=== PATIENT | male | born 1975 | race Caucasian/White ===

== ENCOUNTER → 2021-05-16 | Outpatient (CLI) | payer OTHER | LOC: HEART CORB 10:45 | DX: R07.2 Precordial pain (principal); R06.02 Shortness of breath; R60.0 Localized edema | CPT/HCPCS: 93306 ==

== ENCOUNTER → 2021-06-25 | Outpatient (CLI) | payer OTHER | LOC: SLEEP-COR 21:30 | DX: E66.9 Obesity, unspecified (principal); F17.200 Nicotine dependence, unspecified, uncomplicated; G47.33 Obstructive sleep apnea (adult) (pediatric); R09.02 Hypoxemia | CPT/HCPCS: 95810 ==

== ENCOUNTER → 2021-07-17 | Outpatient (CLI) | payer OTHER | LOC: HEART 5 10:33 | DX: R09.02 Hypoxemia (principal) | CPT/HCPCS: 94060; 94729 ==

== ENCOUNTER → 2021-07-19 | Outpatient (CLI) | payer OTHER | LOC: RT 09:22 | DX: R09.02 Hypoxemia (principal) | CPT/HCPCS: 36600; 82803 ==